=== PATIENT | male | born 1995 | race Hispanic/Latino ===

== ENCOUNTER 2017-02-08 12:57 | Emergency (ER) | payer SELFPAY ==
[2017-02-08] MEDS ORDERED: Ibuprofen 600 MG TAB ONE (13:53)
== END 2017-02-08 14:08 | disposition home or self-care (01) ==
LOC: SCSER 12:57
DX: J03.90 Acute tonsillitis, unspecified (principal)
CPT/HCPCS: 87081; 87430; 99283

== ENCOUNTER 2017-02-13 23:17 | Emergency (ER) | payer SELFPAY | END 2017-02-14 00:08 | disposition left against medical advice (07) | LOC: ERS 23:17 | DX: Z53.21 Procedure and treatment not carried out due to patient leaving prior to being seen by health care provider (principal) ==

== ENCOUNTER 2017-02-14 00:26 | Emergency (ER) | payer SELFPAY ==
[2017-02-14] MEDS ORDERED: Ketorolac Tromethamine 30 MG/ML VIAL ONE (00:52)
[2017-02-14 01:03] LABS: #Basophils 0.1 thou/uL (0.0-0.2); #Eosinphils 0.3 thou/uL (0.0-0.7); #Monocytes 0.9 thou/uL (0.11-0.59); %Basophils 1.1 % (0.0-1.0); %Eosinophils 2.5 % (0.0-10.0); %Lymphocytes 28.8 % (28.0-48.0); %Monocytes 9.2 % (0.0-4.0); Hematocrit 46.6 % (42.0-52.0); White Blood Cell (WBC) Count 10.3 thou/uL (4.8-10.8)
[2017-02-14 01:50] LABS: ALT (SGPT) 54 U/L (8-55); AST (SGOT) 30 U/L (5-34); Alkaline Phosphatase 81 U/L (Less than 750); Anion Gap 16 mmol/L (10-20); BUN (Urea Nitrogen) 7 mg/dL (8.9-20.6); Bilirubin, Total 0.4 mg/dL (0.2-1.2); Calc. Creatinine Clearance 0 mL/min (70-130); Calcium 9.3 mg/dL (7.8-10.44); Carbon Dioxide 22 mmol/L (22-29); Chloride 105 mmol/L (98-107); Estimated GFR-MDRD Greater than 90; Globulin 3.4 g/dL (2.4-3.5); Lipase 27 U/L (8-78); Protein, Total 7.6 g/dL (6.0-8.3)
== END 2017-02-14 01:36 | disposition home or self-care (01) ==
LOC: SCSER 00:26
DX: K52.9 Noninfective gastroenteritis and colitis, unspecified (principal)
CPT/HCPCS: 80053; 82274; 83690; 85025; 87015; 87045; 87046; 87449; 87899; 96374; J1885

== ENCOUNTER 2017-11-12 16:45 | Emergency (ER) | payer SELFPAY ==
[2017-11-12] MEDS ORDERED: Dexamethasone 4 MG TAB PO SCH (18:15)
[2017-11-12] MEDS ORDERED: valACYclovir 500 MG TAB PO SCH (18:15)
== END 2017-11-12 18:30 | disposition home or self-care (01) ==
LOC: ERS 16:45
DX: G51.0 Bell's palsy (principal)
CPT/HCPCS: 99283; J8540

== ENCOUNTER 2019-09-02 13:50 | Emergency (ER) | payer OTHER, SELFPAY ==
[2019-09-04 13:50] LABS: SARS-CoV-2 MS2 Positive; SARS-CoV-2 N Gene Positive; SARS-CoV-2 S Gene Positive; SARS-CoV-2 orf1ab Positive
== END 2019-09-02 14:18 | disposition home or self-care (01) ==
LOC: ERS 13:50
DX: U07.1 COVID-19 (principal); R50.9 Fever, unspecified; Z20.828 Contact with and (suspected) exposure to other viral communicable diseases
CPT/HCPCS: 87635; 99283; U0003

== ENCOUNTER 2019-09-21 15:24 | Emergency (ER) | payer OTHER, SELFPAY ==
[2019-09-21] MEDS ORDERED: Ketorolac Tromethamine 30 MG/ML VIAL ONE (15:36)
== END 2019-09-21 15:55 | disposition home or self-care (01) ==
LOC: ERS 15:24
DX: K04.7 Periapical abscess without sinus (principal)
CPT/HCPCS: 96372; 99282; J1885